=== PATIENT | female | born 1955 | race Caucasian/White ===

== ENCOUNTER → 2017-10-08 | Outpatient (CLI) | payer BC ==
[~2017-10-08] MED LIST: ASCO-182 PO; ASPI81TA94 PO; AUG500 PO; CALC500T6 PO; CRAN400C2 PO; GLUC-198 PO
--- NOTE | 2017-10-09 09:03 | RADIOLOGY IMAGING REPORT ---
FACILITY: [facility] - [place] PATIENT NAME: ANALI KELSEY : [id number] MR: [id number] V: [id number] EXAM DATE: ORDERING PHYSICIAN: VICKIE NO TECHNOLOGIST: Melissa Kelly PROCEDURE:BILATERAL DIGITAL SCREENING MAMMOGRAM WITH CAD ASSISTED INTERPRETATION & 3D TOMOSYNTHESIS COMPARISON:Prior mammograms 03/24/15 INDICATIONS:SCREENING FINDINGS: Moderately heterogeneous fibroglandular tissue is seen throughout the breasts. The parenchymal pattern has remained stable allowing for difference in mammographic technique & patient positioning. There is no evidence of malignant appearing mass, malignant appearing calcifications or other secondary sign of malignancy in either breast. DIAGNOSTIC CATEGORY 1--NEGATIVE. RECOMMENDATIONS: ROUTINE MAMMOGRAM AND CLINICAL EVALUATION. IMPRESSION: BIRADS 1: Negative No significant abnormality is seen Dictated by: Harriet Stephens M.D. on 10/08/2017 at 15:49 Transcribed by: ROSIBEL on 10/09/2017 at 7:57 Approved by: Harriet Stephens M.D. on 10/09/2017 at 9:02 [facility]
== END ==
LOC: MAMO 02:29
PROVIDERS: ATTEND Nurse Practitioner Family
DX: Z12.31 Encounter for screening mammogram for malignant neoplasm of breast (principal)
CPT/HCPCS: 77063; 77067

== ENCOUNTER 2018-03-31 19:27 | Emergency (ER) | payer BC ==
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
[2018-03-31] MEDS ORDERED: NS(*) 0.9% 1000 ML BAG 1,000 ML IV ONE (19:41)
[2018-03-31] MEDS ORDERED: OLME1TAB3 PO (19:43)
--- NOTE | 2018-03-31 19:52 | EKG ---
FACILITY: [facility] - [place] PATIENT NAME: ANALI KELSEY : [id number] MR: [id number] V: [id number] EXAM DATE: ORDERING PHYSICIAN: CHRISTOPHER GOULD TECHNOLOGIST: CHANDRIKA Evangelista Reason : Blood Pressure : / mmHG Vent. Rate : 061 BPM Atrial Rate : 061 BPM P-R Int : 140 ms QRS Dur : 080 ms QT Int : 428 ms P-R-T Axes : 029 053 033 degrees QTc Int : 430 ms Sinus rhythm Nonspecific ST findings inferolaterally Similar to previous EKG Confirmed by DENI SCOTT [id number] on 04/01/2018 6:16:29 AM Referred By: Confirmed By:DENI SCOTT
[2018-03-31 20:12] LABS: PLATELET COUNT, AUTOMATED 239 K/uL (150-450)
[2018-03-31 20:30] VITALS: BP 137/81
--- NOTE | 2018-03-31 20:41 | RADIOLOGY IMAGING REPORT ---
[place] [facility] [place] Kalina Re[place] : 1955 MR: [id number] V: [id number] EXAM DATE: ORDERING PHYSICIAN: CHRISTOPHER GOULD TECHNOLOGIST: Location: [facility] [place] Patient: Kalina Reyes : 1955 Visit/Account:[id number] Date of Sevice: 03/31/2018 CT Head without contrast Indication: Syncope. Comparison: None available Technique: Axial CT images were obtained through the brain from the skull base to the vertex without administration of IV contrast. Reformatted coronal and sagittal images were also obtained. One of the following dose optimization techniques was utilized in the performance of this exam: autom ated exposure control; adjustment of the mA and/or kV according to the patient's size; or use of an i terative reconstruction technique. Specific details can be referenced in the facility's radiology CT exam operational policy. Findings: No evidence of mass, mass effect, or midline shift. No acute intracranial hemorrhage or acute territorial infarction. No extra-axial fluid collection or hydrocephalus. No abnormal density. Tadeo/white matter differentiat ion appears normal. Benign calcifications seen along the anterior falx. Bony structures show no fractures or lesions. The visualized paranasal sinuses and mastoid air cells are clear. IMPRESSION: 1. No acute intracranial abnormality. Report Dictated By: Cleveland Miller at 03/31/2018 8:34 PM Report E-Signed By: Cleveland Miller at 03/31/2018 8:38 PM [id number]
== END 2018-03-31 21:25 | disposition home or self-care (01) ==
LOC: ER 19:52
DX: R55 Syncope and collapse (principal); R19.7 Diarrhea, unspecified; E87.6 Hypokalemia; E86.0 Dehydration
CPT/HCPCS: 81001; 84484; 85025; 85379; 93005; 96360; 99284; J7030; 70450; 82040; 82247; 82310; 82374; 82435; 82565; 82947; 84075; 84132; 84155; 84295; 84450; 84460; 84520

== ENCOUNTER → 2019-03-16 | Outpatient (CLI) | payer BC ==
[~2019-03-16] MED LIST changes: +OLME1TAB3 PO
--- NOTE | 2019-03-16 13:15 | RADIOLOGY IMAGING REPORT ---
[place] [facility] [place] NAME: Kalina Reyes : 1955 MR: [id number] V: [id number] EXAM DATE: ORDERING PHYSICIAN: VICKIE NO TECHNOLOGIST: Location: Patient: Kalina Reyes : 1955 Visit/Account:[id number] Date of Sevice: 03/16/2019 HIP LEFT Indication: Left hip pain. Comparison: None available Findings: There is no acute fracture or dislocation of the left hip. 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 Loss. Mild/moderate degenerative changes within the visualized lumbar spine. IMPRESSION: 1. No acute osseous abnormality left hip. 2. 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
== END ==
LOC: RAD 12:08
PROVIDERS: ATTEND Nurse Practitioner Family
DX: M25.552 Pain in left hip (principal)